=== PATIENT | female | born 1960 | race Caucasian/White ===

== ENCOUNTER 2017-04-28 08:10 | Outpatient (CLI) | payer MEDICARE, MEDICAID ==
--- NOTE | 2017-04-28 15:21 | NM ---
RADIONUCLIDE GASTRIC EMPTYING SCAN: Date: 04/28/17 HISTORY: Epigastric pain, left upper quadrant abdominal pain. RADIOPHARMACEUTICAL: 2 mCi technetium-99m sulfur colloid administered orally in scrambled eggs. FINDINGS: There is 53% emptying of the ingested gastric contents at 1 hour, 73% emptying at 2 hours, 87% empty ing at 3 hours, and 100% emptying at 4 hours. The calculated gastric emptying half-time measures 54 minutes. IMPRESSION: Normal exam. POS: MELANI
== END 2017-04-28 08:11 | disposition home or self-care (01) ==
LOC: NM 08:10
PROVIDERS: ATTEND Internal Medicine
DX: R10.13 Epigastric pain (principal); R10.12 Left upper quadrant pain
CPT/HCPCS: 78264; A9541

== ENCOUNTER 2017-05-02 12:48 | Outpatient (CLI) | payer MEDICARE, MEDICAID ==
[2017-05-02] MEDS ORDERED: BUPIVACAINE IM ONE (13:15)
[2017-05-02] MEDS ORDERED: [UNRECOGNIZED DRUG - OTHER] IM ONE (13:15)
[2017-05-02] MEDS ORDERED: DEXAMETHASONE IM ONE (13:15)
[2017-05-02] MEDS ORDERED: TRIAMCINOLONE ACETONIDE IM ONE (13:15)
--- NOTE | 2017-05-02 16:09 | RAD ---
RIGHT HIP FLUOROSCOPIC INJECTION: Date: 05-02-17 History: Right hip arthritis, right hip pain. Radiation dosimetry: 0.9 minutes fluoroscopy, AK 563 mGy*cm\S\2. A total of 4 mg Dexamethasone, 40 mg triamcinolone, as well as 1 ml of Marcaine 0.5% was injected in to the right hip joint. Technique: Informed consent was obtained for the patient. The right hip was prepped and draped in the usual davon rile manner. A 1% Lidocaine solution was used to anesthetize the overlying soft tissues. A 22 gauge spinal needle was placed under fluoroscopic guidance into the right hip joint. Position was confirme d using some intravenous contrast, approximately 3 cc. After position was confirmed, the 3 ml of davon roid mixture was injected into the right hip joint. IMPRESSION: Successful right hip joint steroid injection using fluoroscopic guidance. POS: MELANI
== END 2017-05-02 12:49 | disposition home or self-care (01) ==
LOC: RAD 12:48
PROVIDERS: ATTEND Nurse Practitioner Family
DX: M25.551 Pain in right hip (principal); M16.11 Unilateral primary osteoarthritis, right hip
CPT/HCPCS: 27093; J1100; J3301; J3490

== ENCOUNTER 2017-05-10 11:39 | Inpatient (IN) | payer MEDICARE, MEDICAID ==
[2017-05-10] MEDS ORDERED: Piperacillin/Tazobactam 3.375 GM in Sodium Chloride 0.9% 100 ML IVPB SCH (12:00)
[2017-05-10] MEDS ORDERED: Ondansetron HCl/PF 8 MG in Sodium Chloride 0.9% 50 ML IVPB PRN (12:11)
[2017-05-10] MEDS: Fentanyl 100 MCG/2 ML VIAL SLOW IVP PRN ×3 (12:56→22:41)
[2017-05-10] MEDS ORDERED: Vancomycin HCl 1 GM in Premix Bag 1 BAG IVPB SCH (13:00)
[2017-05-10] MEDS: Ondansetron HCl/PF 4 MG/2 ML Vial SLOW IVP PRN ×2 (13:02→22:55)
[2017-05-10 13:18] LABS: #Basophils 0.1 thou/uL (0.0-0.2); #Eosinphils 0.3 thou/uL (0.0-0.7); #Lymphocytes 2.4 thou/uL (1.20-3.40); #Monocytes 1.5 thou/uL (0.11-0.59); #Neutrophils 10.1 thou/uL (1.40-6.50); %Basophils 0.7 % (0.0-1.0); %Eosinophils 2.1 % (0.0-10.0); %Lymphocytes 16.3 % (21.0-51.0); %Monocytes 10.4 % (0.0-10.0); Hematocrit 40.2 % (36.0-47.0); Mean Platelet Volume 8.4 fL (7.4-10.4); White Blood Cell (WBC) Count 14.4 thou/uL (4.8-10.8)
[2017-05-10 13:30] VITALS: BMI 33.3
[2017-05-10 13:51] LABS: ALT (SGPT) 47 U/L (8-55); AST (SGOT) 35 U/L (5-34); Alkaline Phosphatase 102 U/L (40-150); Anion Gap 11 mmol/L (10-20); BUN (Urea Nitrogen) 22 mg/dL (9.8-20.1); Calc. Creatinine Clearance 79 mL/min (70-130); Calcium 9.4 mg/dL (7.8-10.44); Carbon Dioxide 22 mmol/L (22-29); Chloride 104 mmol/L (98-107); Estimated GFR-MDRD 47; Globulin 3.1 g/dL (2.4-3.5); Protein, Total 6.7 g/dL (6.0-8.3)
[2017-05-10] MEDS: HYDROcodone/Acetaminophen 10/325 mg Tablet PO PRN ×2 (14:52→21:01)
[2017-05-10] MEDS: Piperacillin/Tazobactam 3.375 GM, IV Admixture Fee-Chemo 1 UNITS in Sodium Chloride 0.9... IVPB SCH ×2 (14:55→21:03)
--- NOTE | 2017-05-10 15:47 | HP ---
DATE OF ADMISISON: 05/10/2017 CHIEF COMPLAINT ON ADMISSION: Cellulitis, abscess, fever. HISTORY OF PRESENT ILLNESS: The patient is a 56-year-old female who one week prior to adm ission began to have swelling and tenderness in her left lower abdomen. This gradually has worsened over time to the point where erythema and heat showed up that began to hurt when she walked over th e last couple of days, she began to have a fever over the last 2 days. She has been applying warm c ompresses and her daughter opened this wound and was able to get some clear serous drainage out; how ever, it did not diminished her pain. There has not been any purulent drainage, her fever has fritz nued to go over 101. The size of erythematous patches raised to 3 cans sizes on her abdominal wall. She also developed an abscess on the forehead at the widows peak and there is also opened and is d raining some minor amount of pus, but is exquisitely tender as well. She came to the office for the procedure of incision and drainage; however, the febrile nature and large area of cellulitis necess itated that she be hospitalized and received IV antibiotics. Surgical opening may be necessary once this has been stabilized. PAST MEDICAL HISTORY: Significant for hypertension, severe reflux and heartburn, osteoporosis, obst ructive sleep apnea, osteoarthritis, migraines, depression and now she has intestinal gastroparesis with recent diagnosis of gastritis and esophagitis, closed head injury with fracture, COPD, GERD. PAST SURGICAL HISTORY: Her prior procedures include EGD and colonoscopy done recently. She has als o had neck surgery per Dr. Gill. She has also undergone hysterectomy, a C3-C4 disk repair, kim endectomy, corneal surgery, cholecystectomy. FAMILY HISTORY: Mother is alive. Father unknown. Mother has diabetes, hypertension and back probl ems. SOCIAL HISTORY: The patient is . She is a former smoker. She no longer smokes or drinks. ALLERGIES: Just to LATEX. CURRENT MEDICATIONS: Include Forteo 20 mcg subcu daily, sulfasalazine 500 mg b.i.d., Levsin subling ual p.r.n. stomach cramps, Zoloft 100 mg at bedtime, Protonix 40 mg b.i.d. and Promethazine 25 mg p. r.n. nausea. REVIEW OF SYSTEMS: General: The patient has had fever, looks fatigued, general malaise and discomf ort. HEENT: Denies headaches or blurred vision at this time. No sores in the nares or pharynx. Neck: Denies pain with range of motion or swelling or mass. Chest: Denies cough, but there is tyra n with inspiration in her abdominal wall. Heart: Denies palpitations or chest pain. Abdomen: She is tender at the site of the abscess. No organomegaly is appreciated. Genitourinary: Denies any burning with urination, frequency, or urgency. Musculoskeletal: There i s general arthritic complaints, but no specific swelling or site of erythema. Skin: Skin with the aforementioned patches of erythema, heat, tenderness and pain on the left abdomen as well as the pea k of her forehead. Neurologic: Cranial nerves are intact. Gait is painful, but slow. Sensory exa m is intact. Mental status is clear. The gait and cerebellar function are normal. LABORATORY DATA: Lab work is pending at the time of admission. ASSESSMENT: 1. Acute abdominal wall cellulitis with abscess formation. 2. Forehead abscess. 3. Early sepsis. 4. Mild dehydration. PLAN: Antiemetics, IV antibiotics, pain management, serial reevaluation. We will consider surgical consultation to open these areas once we see her response to antibiotics. We will ask pharmacy to manage the vancomycin levels. We will serially reevaluate her.
[2017-05-10] MEDS ORDERED: Iopamidol 370 76% 100 ML VIAL ONE (16:09)
[2017-05-10 17:52] LABS: Bilirubin Negative (Negative); Blood, Urine Negative (Negative); Glucose, Urine (Dipstick) Negative (Negative); Ketone, Urine Negative (Negative); Nitrite Negative (Negative); Protein, Urine (Dipstick) Negative (Neg-Trace); Urobilinogen 0.2 mg/dL (0.2-1.0)
[2017-05-10 17:54] LABS: Bacteria/HPF None Seen HPF (None Seen); Hyaline Casts/LPF 0-3 HYALINE CAST LPF (0-3 Hyaline); RBC/HPF 0-3 HPF (0-3); Squamous Epithelial 0-3 HPF (0-3); WBC/HPF 0-3 HPF (0-3)
--- NOTE | 2017-05-10 20:16 | CT ---
CT ABDOMEN WITH AND WITHOUT IV CONTRAST 05/10/17 HISTORY: Spider bite anterior abdomen. Redness. Evaluate for abscess. Cellulitis. FINDINGS: There is inflammatory stranding seen within the left anterolateral aspect of the abdomen lateral to the level of the umbilicus with associated skin thickening. There is no underlying fluid collection seen to suggest an abscess. There is mild bibasilar atelectasis. The liver, spleen, pancreas, and bilateral adrenal glands as well as opacified bowel demonstrate a n ormal CT appearance. There is a fluid attenuation cystic lesion central aspect left kidney suggestive of a small parapelv ic cyst. There is also a cortically based 1.3 cm fluid attenuation lesion seen within the lateral as pect mid portion left kidney consistent with a cyst. Subcentimeter to small to characterize hypodens e lesion seen at the inferior pole right kidney. Mild vascular calcifications are seen in the abdominal aorta and proximal visualized iliac arteries. No free fluid, fluid collection, or lymphadenopathy is seen in the abdomen or pelvis. Incidental not e is made of a circumaortic left renal vein. IMPRESSION: 1. Subcutaneous edema and skin thickening in the left anterolateral abdomen at the level of the umbilicus which may be related to cellulitis. There is no fluid collection seen to suggest an absce ss. 2. Left renal cyst with too small to characterize hypodense lesion right kidney. 3. Cholecystectomy. POS: MELANI
[2017-05-10] MEDS ORDERED: FLU VACC QS2017-18 36 mo. & older 0.5 ML SYRINGE IM ONE (21:00)
[2017-05-11] MEDS: HYDROcodone/Acetaminophen 10/325 mg Tablet PO PRN (01:37)
[2017-05-11] MEDS: Vancomycin HCl 1 GM in Premix Bag 1 BAG IVPB SCH ×2 (01:37→11:24)
[2017-05-11] MEDS: Fentanyl 100 MCG/2 ML VIAL SLOW IVP PRN ×4 (03:59→16:04)
[2017-05-11] MEDS: Piperacillin/Tazobactam 3.375 GM, IV Admixture Fee-Chemo 1 UNITS in Sodium Chloride 0.9... IVPB SCH ×4 (04:00→21:26)
[2017-05-11] MEDS: Ondansetron HCl/PF 4 MG/2 ML Vial SLOW IVP PRN ×2 (08:07→16:00)
[2017-05-11] MEDS: Acetaminophen 325 MG TAB PO PRN ×2 (08:29→21:32)
[2017-05-11] MEDS: oxyCODONE/Acetaminophen 5 mg/325 mg Tablet PO PRN ×3 (09:28→18:54)
[2017-05-11] MEDS ORDERED: Clopidogrel Bisulfate 75 MG TAB ONE (11:10)
[2017-05-11] MEDS: Acyclovir 400 mg Tablet PO SCH ×2 (14:08→21:25)
[2017-05-12 00:53] LABS: Vancomycin, Trough 11.7 ug/mL
[2017-05-12] MEDS ORDERED: Vancomycin HCl 1.25 GM in Sodium Chloride 0.9% 250 ML 250 ML IVPB SCH (02:00)
[2017-05-12] MEDS: Vancomycin HCl 1 GM in Premix Bag 1 BAG IVPB SCH (02:04)
[2017-05-12] MEDS: Vancomycin HCl 1.25 GM in Sodium Chloride 0.9% 250 ML 250 ML IVPB SCH ×2 (02:07→14:39)
[2017-05-12] MEDS: oxyCODONE/Acetaminophen 5 mg/325 mg Tablet PO PRN (02:11)
[2017-05-12 04:14] LABS: #Eosinphils 0.3 thou/uL (0.0-0.7); #Lymphocytes 2.6 thou/uL (1.20-3.40); #Monocytes 1.1 thou/uL (0.11-0.59); #Neutrophils 8.7 thou/uL (1.40-6.50); %Basophils 0.3 % (0.0-1.0); %Eosinophils 2.2 % (0.0-10.0); %Lymphocytes 20.2 % (21.0-51.0); %Monocytes 8.9 % (0.0-10.0); Hematocrit 41.1 % (36.0-47.0); Mean Platelet Volume 7.4 fL (7.4-10.4); Red Blood Cell (RBC) Count 4.49 mill/uL (4.20-5.40); White Blood Cell (WBC) Count 12.7 thou/uL (4.8-10.8)
[2017-05-12] MEDS: Piperacillin/Tazobactam 3.375 GM, IV Admixture Fee-Chemo 1 UNITS in Sodium Chloride 0.9... IVPB SCH ×4 (04:19→22:29)
[2017-05-12 04:40] LABS: Anion Gap 10 mmol/L (10-20); BUN (Urea Nitrogen) 12 mg/dL (9.8-20.1); Calc. Creatinine Clearance 77 mL/min (70-130); Calcium 9.8 mg/dL (7.8-10.44); Carbon Dioxide 28 mmol/L (22-29); Chloride 105 mmol/L (98-107); Estimated GFR-MDRD 45
[2017-05-12] MEDS: Acetaminophen 325 MG TAB PO PRN ×2 (05:17→17:14)
[2017-05-12] MEDS ORDERED: Promethazine HCl 25 MG/ML VIAL IM PRN (08:38)
[2017-05-12] MEDS: Ondansetron HCl/PF 4 MG/2 ML Vial SLOW IVP PRN (10:35)
[2017-05-12] MEDS: Acyclovir 400 mg Tablet PO SCH ×3 (10:35→22:28)
[2017-05-12] MEDS: Enoxaparin Sodium 40 MG/0.4 ML SYRINGE SC SCH (22:28)
[2017-05-13] MEDS: Acetaminophen 325 MG TAB PO PRN (00:40)
[2017-05-13] MEDS: Piperacillin/Tazobactam 3.375 GM, IV Admixture Fee-Chemo 1 UNITS in Sodium Chloride 0.9... IVPB SCH ×4 (03:27→20:21)
[2017-05-13] MEDS: Vancomycin HCl 1.25 GM in Sodium Chloride 0.9% 250 ML 250 ML IVPB SCH ×2 (03:28→14:31)
[2017-05-13 04:33] LABS: #Basophils 0.1 thou/uL (0.0-0.2); #Eosinphils 0.2 thou/uL (0.0-0.7); #Lymphocytes 2.5 thou/uL (1.20-3.40); #Monocytes 0.9 thou/uL (0.11-0.59); #Neutrophils 6.7 thou/uL (1.40-6.50); %Basophils 0.6 % (0.0-1.0); %Eosinophils 1.9 % (0.0-10.0); %Lymphocytes 24.3 % (21.0-51.0); %Monocytes 9.1 % (0.0-10.0); Mean Platelet Volume 7.4 fL (7.4-10.4); Red Blood Cell (RBC) Count 4.04 mill/uL (4.20-5.40); White Blood Cell (WBC) Count 10.4 thou/uL (4.8-10.8)
[2017-05-13 05:05] LABS: ALT (SGPT) 36 U/L (8-55); AST (SGOT) 27 U/L (5-34); Alkaline Phosphatase 105 U/L (40-150); Anion Gap 10 mmol/L (10-20); BUN (Urea Nitrogen) 10 mg/dL (9.8-20.1); Bilirubin, Total 0.7 mg/dL (0.2-1.2); Calc. Creatinine Clearance 91 mL/min (70-130); Calcium 9.2 mg/dL (7.8-10.44); Carbon Dioxide 27 mmol/L (22-29); Chloride 106 mmol/L (98-107); Estimated GFR-MDRD 55; Protein, Total 6.2 g/dL (6.0-8.3)
--- NOTE | 2017-05-13 05:57 | CON ---
DATE OF CONSULT: 05/12/2017 HISTORY OF PRESENT ILLNESS: Ms. Napier is a 56-year-old female patient admitted due to severe abd ominal wall infection apparently from brown recluse spider bite. Abdominal CAT scan obtained at reveals infectious changes. Blood cultures have been negative today. The patient has been experiencing this for several days. She was admitted and placed on vancomycin and Zosyn. ALLERGIES: LATEX. MEDICATIONS: Forteo, sulfasalazine, Levsin sublingual p.r.n., Zoloft, Protonix, promethazine. PAST SURGICAL HISTORY: Cervical spine surgery by Dr. Gill, hysterectomy, appendectomy, cholecy stectomy, recent upper and lower endoscopy. PAST MEDICAL HISTORY: Hypertension, gastroesophageal reflux disease, sleep apnea, osteoarthritis, m igraines, depression, gastroparesis, history of closed head injury, cervical spine fracture, COPD. SOCIAL HISTORY: Patient is . Tobacco none. Former smoker. ALCOHOL: None. MEDICATIONS AT HOME: Tylenol with codeine at home, Protonix 40 mg a day, Zanaflex 40 b.i.d., vancom ycin, Zosyn ordered in the hospital. PHYSICAL EXAMINATION: VITAL SIGNS: 5 foot 7, 213 pounds, 33 BMI, 98.8, 68, 137/68. LUNGS: Clear to auscultation. CARDIAC: Regular rate and rhythm without murmur or gallop. ABDOMEN: Soft, nontender, no masses, abdominal wall, intense cellulitis in left lower quadrant with a punctate opening consistent with a brown recluse spider bite with central necrosis. ASSESSMENT: Necrotizing soft tissue infection due to a brown recluse spider bite. PLAN: Incision and drainage under anesthesia tomorrow. Risks and benefits explained. She will hav e an open wound to heal by secondary intention, wound care be consulted.
[2017-05-13] MEDS ORDERED: Lactated Ringer's 1,000 ML IV SCH (08:00)
[2017-05-13] MEDS ORDERED: oxyCODONE/Acetaminophen 5 mg/325 mg Tablet PO PRN (08:15)
--- NOTE | 2017-05-13 08:31 | PRG ---
DATE OF SERVICE: 05/13/2017 SUBJECTIVE: The patient had a good night. Her pain was not controlled with the Demerol and Phenerg an. However, she figured out that her headache was from the cause of her pillow being too thick. O nce she took the pillow out from under her head, her pain has been better. PHYSICAL EXAMINATION GENERAL: Upon evaluation, she is awake, alert, and oriented. Her daughter is at bedside. VITAL SIGNS: Her blood pressure is 130/70, pulse 70, respirations 18. She is afebrile. NECK: Supple with no increased JVP or carotid bruit. Carotid had good upstroke with no thyromegaly . COR: Regular rate and rhythm with normal first and second heart sounds normal. No murmur, S3, S4, or thrills. CHEST: Symmetrical. Clear to auscultation and percussion. ABDOMEN: Soft and tender. She has a large area from a spider bite that is red that is inflamed. I t is warm and it has pus coming out. She had normoactive bowel sounds. EXTREMITIES: No edema or cyanosis. She had palpable pedal pulses. SKIN: As above. NEUROLOGIC: She is awake, alert, oriented to person, place, and time. LABORATORY DATA: Her CBC is normal. Her CMP is normal. Her cultures are pending at this time. ASSESSMENT: 1. Cellulitis from a spider bite. 2. Headache, now improved. 3. Multiple medical problems. PLAN: 1. The patient will undergo an I\T\D of her wound today by Dr. Garsia. We will change her pain med icine back to Percocet and discontinue the Demerol and Phenergan. 2. We will continue antibiotics. 3. All questions answered to the patient's satisfaction.
[2017-05-13] MEDS ORDERED: Lidocaine 2% w/Epinephrine 1:200K 20 ML VIAL ONE (09:47)
[2017-05-13] MEDS ORDERED: Bupivacaine 0.25% HCL 30 ML VIAL ONE (09:47)
[2017-05-13] MEDS ORDERED: Fentanyl 250 MCG/5 ML VIAL ONE (10:04)
[2017-05-13] MEDS ORDERED: Lidocaine 4% Topical Sol 50 ML BOT ONE (10:13)
[2017-05-13] MEDS ORDERED: Ondansetron HCl/PF 4 MG/2 ML Vial ONE (11:35)
--- NOTE | 2017-05-13 12:10 | OP ---
DATE OF OPERATION: 05/13/2017 PREOPERATIVE DIAGNOSIS: Left lower quadrant abdominal wall abscess. POSTOPERATIVE DIAGNOSIS: Left lower quadrant abdominal wall abscess. PROCEDURE: Incision and drainage of abdominal wall abscess, 9 cm incision, 2 cm wide, 2 cm deep, co pious purulent material sent for culture and sensitivity. Wound VAC applied by Wound Care. ANESTHESIA: General. Local 0.5% Marcaine 30 mL, 2% Xylocaine with epinephrine, 30 mL total volume used. PROCEDURE IN DETAIL: The patient was taken to the operating room where under general anesthesia, ab mcknight was prepared with ChloraPrep, draped in routine fashion. The patient had an abscess that was drained. Transverse incision in the left upper quadrant exploring the wound breaking down loculatio ns and draining abscess of copious purulent material sent for culture and sensitivity. Wound was ir rigated, necrotic tissue debrided sharply excisional 10 blade scalpel used. Wound was irrigated, he mostasis gained with cautery. Wound Care team arrived and placed a wound VAC after local anesthetic infiltrated into skin and subcutaneous tissue about the wound for postoperative pain control. The patient tolerated the procedure well. From a surgical standpoint, the patient will probably be discharged home this weekend with the wound VAC is available. I will see her in the office in [address] Issa is covering, please c all if needed.
[2017-05-13] MEDS ORDERED: Ibuprofen 600 MG TAB PO PRN (14:26)
[2017-05-13] MEDS ORDERED: Acetaminophen 500 MG TAB PO PRN (14:26)
[2017-05-13] MEDS ORDERED: traMADol HCl 50 MG TAB PO PRN (14:26)
[2017-05-13] MEDS: Acyclovir 400 mg Tablet PO SCH ×3 (14:34→20:21)
--- NOTE | 2017-05-13 16:03 | PQF ---
CLINICAL DOCUMENTATION IMPROVEMENT CLARIFICATION FORM: ICD-10 Updated PLEASE DO AN ADDENDUM TO THE PROGRESS NOTE WITH ANY DOCUMENTATION UPDATES OR ADDITIONS AND CARRY THROUGH TO DC SUMMARY. THANK YOU. DATE: 05/13/17 ATTN: Dr. Pena Please exercise your independent, professional judgment in responding to the clarification form. Clinical indicators are provided on the bottom of this form for your review Please check appropriate box(s) to clarify if the following diagnosis has been ruled in our ruled out: Early Sepsis in (H&P.) [ x ] Ruled in diagnosis [ x ] Continue to treat [ ] Resolved [ ] Ruled out diagnosis [ ] Cannot rule out diagnosis [ x ] Other diagnosis brown recluse bite [ ] Unable to determine For continuity of documentation, please document condition throughout progress notes and discharge summary. Thank You. CLINICAL INDICATORS - SIGNS / SYMPTOMS / LABS H&P: FEVER OVER LAST 2 DAYS LAB: 05/10 WBC 14.4 RISKS: H&P: ACUTE ABDOMINAL WALL CELLULITIS W/ ABSCESS FORMATION. FOREHEAD ABSCESS GS CONSULT: NECROTIZING SOFT TISSUE INFECTION D/T BROWN RECLUSE SPIDER BITE TREATMENT: CPOE 05/10: ZOSYN 3.375 GM IV CPOE 05/12: VANCOMYCIN I (This form is maintained as a part of the permanent medical record) 2014 [employer]. All Rights Reserved Sarah Kaufman RN, BSN [email or web address] Office: [phone] [facility]
[2017-05-13] MEDS: traMADol HCl 50 MG TAB PO PRN ×2 (18:31→23:25)
[2017-05-13] MEDS: Enoxaparin Sodium 40 MG/0.4 ML SYRINGE SC SCH (23:24)
[2017-05-14 01:21] LABS: Vancomycin, Trough 16.7 ug/mL
[2017-05-14] MEDS: Piperacillin/Tazobactam 3.375 GM, IV Admixture Fee-Chemo 1 UNITS in Sodium Chloride 0.9... IVPB SCH ×4 (02:17→22:44)
[2017-05-14] MEDS: Vancomycin HCl 1.25 GM in Sodium Chloride 0.9% 250 ML 250 ML IVPB SCH ×2 (04:14→17:21)
[2017-05-14 06:03] LABS: #Basophils 0.1 thou/uL (0.0-0.2); #Lymphocytes 1.6 thou/uL (1.20-3.40); #Monocytes 0.6 thou/uL (0.11-0.59); #Neutrophils 8.9 thou/uL (1.40-6.50); %Basophils 0.6 % (0.0-1.0); %Eosinophils 0.2 % (0.0-10.0); %Lymphocytes 13.9 % (21.0-51.0); %Monocytes 5.4 % (0.0-10.0); Mean Platelet Volume 7.9 fL (7.4-10.4); Red Blood Cell (RBC) Count 3.68 mill/uL (4.20-5.40); White Blood Cell (WBC) Count 11.1 thou/uL (4.8-10.8)
[2017-05-14] MEDS: Acyclovir 400 mg Tablet PO SCH ×3 (09:26→20:34)
[2017-05-14] MEDS ORDERED: Ondansetron HCl/PF 4 MG/2 ML Vial ONE (10:39)
[2017-05-14] MEDS ORDERED: Succinylcholine Chloride 20 MG/ML 10 ml SYRINGE FS ONE (10:39)
[2017-05-14] MEDS ORDERED: PHENYLEPHRINE-NS 100 MCG/ML 10 ML SYRINGE ONE (10:39)
[2017-05-14] MEDS ORDERED: Ketorolac Tromethamine 30 MG/ML VIAL ONE (10:39)
[2017-05-14] MEDS ORDERED: Dexamethasone 20 MG/5 ML VIAL ONE (10:39)
[2017-05-14] MEDS ORDERED: Lidocaine 2% PF 10 ML AMP (For Epidural Use) ONE (10:39)
[2017-05-14] MEDS ORDERED: Propofol 200 MG/20 ML VIAL ONE ×2 (10:39)
[2017-05-14] MEDS: traMADol HCl 50 MG TAB PO PRN (12:55)
[2017-05-14] MEDS ORDERED: Lidocaine 4% Topical Sol 50 ML BOT TOP PRN (15:20)
[2017-05-14] MEDS: Clindamycin 150 MG CAP PO SCH ×2 (17:53→23:45)
[2017-05-14] MEDS: Enoxaparin Sodium 40 MG/0.4 ML SYRINGE SC SCH (20:37)
--- NOTE | 2017-05-14 21:45 | DIS ---
Consuelo Mendoza PRODUCTION SAMPLER-Kiko, dictating for José Miguel Pena M.D. DATE: 05/14/2017 FINAL DIAGNOSES: 1. Abdominal abscess secondary to insect bite. 2. Cellulitis. COMPLICATIONS: None. PROCEDURES: The patient underwent an I\T\D of the abdominal abscess on 05/13/[address] Garsia. CONSULTANTS: Dr. Garsia. HOSPITAL COURSE: This is a pleasant female who was seen by Dr. Pena in the clinic where she was fo und to have abdominal cellulitis secondary to insect bite. She was placed in the hospital where IV antibiotics were initiated. A culture came back that did show MRSA. She did also have a blood cult ure that was negative and urine culture that was negative. She unfortunately was not getting better . Her white blood cell was 14.4, H\T\H was normal. Her CMP was normal except for BUN slightly elev ated , creatinine 1.18. I did have to consult Dr. Garsia who took her to surgery and underwent the procedures enumerated above. She tolerated the procedure well and had no complication. The patient did have to have a wound VAC. Dr. Garsia did place a call with me and states that the p attabatha could go home this weekend where he would continue the wound VAC and for some reason if that was not able to happen, then she could just do wet-to-dry dressings. Her hospital course was unremar kable. Her culture did show MRSA. Her white blood cell count was normal on the day of dismissal. She was discharged home on 05/14/2017. DIET: Regular diet. ACTIVITY: As tolerated by patient. DISCHARGE MEDICATIONS: 1. Tylenol #3 one to two q.4-6 hours p.r.n., pain. 2. Clindamycin 300 mg q.6 hours. 3. Protonix 40 mg every day. 4. Zanaflex 4 mg b.i.d. 5. Zovirax 400 mg t.i.d. 6. Zoloft 100 mg every day. 7. Tylenol p.r.n. FOLLOWUP: She was advised to follow up with Consuelo in 1 week. She would have [facility]. The patient verbalized understanding. The time spent with this patient after reviewing the chart and seeing the patient was 30 minutes.
[2017-05-15] MEDS: Piperacillin/Tazobactam 3.375 GM, IV Admixture Fee-Chemo 1 UNITS in Sodium Chloride 0.9... IVPB SCH ×2 (04:27→07:34)
[2017-05-15] MEDS: traMADol HCl 50 MG TAB PO PRN (04:35)
[2017-05-15] MEDS: Clindamycin 150 MG CAP PO SCH ×2 (04:36→11:47)
[2017-05-15] MEDS: Acyclovir 400 mg Tablet PO SCH (08:43)
[2017-05-15 08:53] VITALS: BP 146/90; TEMP 97.9
--- NOTE | 2017-05-15 18:24 | ADD-DIS ---
ADDENDUM: Unfortunately, the patient's discharge had to be cancelled yesterday as she was in lot of pain from the wound, after wound care changed her dressing. Today, she is much better and feels confident ervin t she can go home with home health. The daughter was also taught on how to do dressing changes as donovan ford. The patient is stable. She will go home on clindamycin as already ordered and Tylenol No. 3. The time spent yesterday and today with this patient was over 30 minutes dictating the discharge sum lora and reviewing the chart and spending time with the patient. Consuelo Mendoza, DANIEL-C, dictating for José Miguel Pena M.D.
[2017-05-16] MEDS ORDERED: FLU VACC QS2017-18 36 mo. & older 0.5 ML SYRINGE IM ONE (09:00)
--- NOTE | 2017-05-16 15:53 | EKG ---
Test Reason : Blood Pressure : / mmHG Vent. Rate : 088 BPM Atrial Rate : 088 BPM P-R Int : 130 ms QRS Dur : 084 ms QT Int : 382 ms P-R-T Axes : 039 -05 037 degrees QTc Int : 462 ms Normal sinus rhythm Minimal voltage criteria for LVH, may be normal variant Borderline ECG Confirmed by FABY REID ([id number]) on 05/16/2017 3:52:39 PM Referred By: JON Confirmed By:FABY REID
== END 2017-05-15 12:37 | disposition home health service (06) | DRG 854 ==
LOC: T4-A 11:39
PROVIDERS: ADMIT Specialist; ATTEND Specialist
PROC: 0J9800Z Drainage of Abdomen Subcutaneous Tissue and Fascia with Drainage Device, Open Approach (ICD-10-PCS; principal; 2017-05-13)
PROC: 0JB80ZZ Excision of Abdomen Subcutaneous Tissue and Fascia, Open Approach (ICD-10-PCS; 2017-05-13)
DX: A41.9 Sepsis, unspecified organism (principal); L03.311 Cellulitis of abdominal wall; L02.211 Cutaneous abscess of abdominal wall; L02.01 Cutaneous abscess of face; I10 Essential (primary) hypertension; K21.9 Gastro-esophageal reflux disease without esophagitis; M81.0 Age-related osteoporosis without current pathological fracture; G47.33 Obstructive sleep apnea (adult) (pediatric); G43.909 Migraine, unspecified, not intractable, without status migrainosus; F32.9 Major depressive disorder, single episode, unspecified; J44.9 Chronic obstructive pulmonary disease, unspecified; Z87.891 Personal history of nicotine dependence; E86.0 Dehydration; B95.62 Methicillin resistant Staphylococcus aureus infection as the cause of diseases classified elsewhere; T63.331A Toxic effect of venom of brown recluse spider, accidental (unintentional), initial encounter; Z91.040 Latex allergy status
CPT/HCPCS: 36415; 74170; 80048; 80053; 80202; 81001; 85025; 87040; 87070; 87077; 87086; 87186; 87205; 90471; 90682; 93005; 93010; A4216; G0008; J0131; J1100; J1650; J1885; J2001; J2175; J2405; J2543; J2704; J3010; J3370; J7050; Q2036; S0020

== ENCOUNTER 2017-07-29 08:00 | Outpatient (CLI) | payer MEDICARE, MEDICAID | END 2017-07-29 08:01 | disposition home or self-care (01) | LOC: BICMRI 08:00 | PROVIDERS: ATTEND Orthopaedic Surgery | DX: M25.551 Pain in right hip (principal) ==

== ENCOUNTER 2017-09-05 09:01 | Outpatient (CLI) | payer MEDICARE, MEDICAID ==
[~2017-09-05 09:01] MED LIST: Iopamidol 370 76% 100 ML VIAL ONE
--- NOTE | 2017-09-05 14:10 | CT ---
CT OF ABDOMEN AND PELVIS PERFORMED WITH INTRAVENOUS CONTRAST ENHANCEMENT: HISTORY: Abdominal pain and right hip pain. History of hysterectomy, cholecystectomy, and appendectomy. FINDINGS: The lung bases are clear. The liver and spleen are normal in size and appearance. Pancreas shows no mass or ductal dilatation. The gallbladder has been removed. Right and left adrenal glands are normal in size. Small hypodensities involving the kidneys are most likely cysts. There is no significant periaortic or mesenteric lymphadenopathy. A retroaortic left renal vein is incidentally noted. CT OF PELVIS PERFORMED WITH CONTRAST ENHANCEMENT: Minimal sigmoid diverticulosis is noted. There is no evidence of any abdominal wall hernia other ervin n a fat-containing paraumbilical hernia. Review of osseous structures shows some arthritic changes o f the spine. IMPRESSION: 1. Minimal diverticulosis, mainly of the sigmoid colon. 2. Postop cholecystectomy change. POS: [facility]
== END 2017-09-05 09:02 | disposition home or self-care (01) ==
LOC: SCSCT 09:01
PROVIDERS: ATTEND Specialist
DX: R10.9 Unspecified abdominal pain (principal); Z90.49 Acquired absence of other specified parts of digestive tract
CPT/HCPCS: 74177

== ENCOUNTER 2018-06-09 09:15 | Outpatient (CLI) | payer MEDICARE, MEDICAID ==
[2018-06-09 09:45] LABS: #Basophils 0.1 thou/uL (0.0-0.2); #Eosinphils 0.2 thou/uL (0.0-0.7); #Lymphocytes 2.4 thou/uL (1.20-3.40); #Monocytes 0.6 thou/uL (0.11-0.59); #Neutrophils 4.1 thou/uL (1.40-6.50); %Basophils 1.1 % (0.0-1.0); %Eosinophils 2.4 % (0.0-10.0); %Lymphocytes 32.6 % (21.0-51.0); %Monocytes 8.3 % (0.0-10.0); %Neutrophils 55.6 % (42.0-75.0); Mean Corpuscular HGB CONC 33.3 g/dL (32.0-36.0); Mean Corpuscular Hemoglobin 29.4 pg (27.0-31.0); Mean Corpuscular Volume 88.4 fL (78.0-98.0); Mean Platelet Volume 8.2 fL (7.4-10.4); Platelet Count 235 thou/uL (130-400); RBC Distribution Width 13.7 % (11.5-14.5); Red Blood Cell (RBC) Count 4.77 mill/uL (4.20-5.40); White Blood Cell (WBC) Count 7.3 thou/uL (4.8-10.8)
[2018-06-09 10:05] LABS: Anion Gap 11 mmol/L (10-20); BUN (Urea Nitrogen) 19 mg/dL (9.8-20.1); Calc. Creatinine Clearance 0 mL/min (70-130); Calcium 9.9 mg/dL (7.8-10.44); Carbon Dioxide 24 mmol/L (22-29); Chloride 109 mmol/L (98-107); Estimated GFR-MDRD 65; Glucose 104 mg/dL (70-105); Potassium 4.6 mmol/L (3.5-5.1); Sodium 139 mmol/L (136-145)
--- NOTE | 2018-06-14 08:14 | EKG ---
Test Reason : Blood Pressure : / mmHG Vent. Rate : 060 BPM Atrial Rate : 060 BPM P-R Int : 132 ms QRS Dur : 082 ms QT Int : 422 ms P-R-T Axes : 070 039 056 degrees QTc Int : 422 ms Normal sinus rhythm Normal ECG When compared with ECG of 12-MAY-2017 20:53, No significant change was found Confirmed by DR. Iveth DAVIDSON ([id number]) on 06/14/2018 8:13:56 AM Referred By: SHRUTHI Confirmed By:DR. Iveth DAVIDSON
== END 2018-06-09 09:16 | disposition home or self-care (01) ==
LOC: LABBT 09:15
PROVIDERS: ATTEND Orthopaedic Surgery
DX: Z01.818 Encounter for other preprocedural examination (principal); G56.01 Carpal tunnel syndrome, right upper limb
CPT/HCPCS: 80048; 85025; 93005; 93010

== ENCOUNTER 2018-06-16 05:51 | Day surgery (SDC) | payer MEDICARE, MEDICAID ==
[2018-06-09 09:46] VITALS: BMI 32.8
[2018-06-16] MEDS ORDERED: CEFAZOLIN 2 GM/50 ML BAG ONE (06:13)
[2018-06-16] MEDS ORDERED: Lidocaine 1% w/Epinephrine 1:100K 30 ML VIAL ONE (06:42)
[2018-06-16] MEDS ORDERED: Fentanyl 100 MCG/2 ML VIAL ONE ×2 (07:15→08:38)
[2018-06-16] MEDS ORDERED: ePHEDrine/0.9% NaCl/PF SYRINGE 50 mg/10 ml ONE (12:00)
[2018-06-16] MEDS ORDERED: Dexamethasone 20 MG/5 ML VIAL ONE (12:00)
[2018-06-16] MEDS ORDERED: PROPOFOL 200 MG/20 ML VIAL ONE (12:00)
[2018-06-16] MEDS ORDERED: Ondansetron PF 4 MG/2 ML Vial ONE (12:00)
[2018-06-16] MEDS ORDERED: Lidocaine 1% PF 5 ML VIAL ONE (12:00)
--- NOTE | 2018-06-16 12:08 | OP ---
PREOPERATIVE DIAGNOSIS: Cubital tunnel syndrome, right. POSTOPERATIVE DIAGNOSIS: Cubital tunnel syndrome, right. PROCEDURE: Cubital tunnel release. SURGEON: Catarino Flores M.D. ANESTHESIA: General. BLOOD LOSS: Minimal. SPECIMENS: None. DRAINS: None. COMPLICATIONS: None. PROCEDURE IN DETAIL: Patient was taken to the operating room where general anesthesia was induced. Right arm was prepped and draped in the usual sterile fashion. After exsanguination, tourniquet was inflated to 250 mmHg. I made a curved incision over the medial epicondyle. Dissection was carried d own to . I dissected the nerve from the condyle and performed hemostasis with the bipolar caute ry. Once the nerve was completely released proximally and distally, the tourniquet was released. Ir rigation was performed. Hemostasis was obtained. Subcutaneous tissue was closed with 2-0 Vicryl, th e skin was closed with wili. Sterile dressing was applied.
== END 2018-06-16 09:38 | disposition home or self-care (01) ==
LOC: SDC 05:51
PROVIDERS: ATTEND Orthopaedic Surgery
PROC: 01N40ZZ Release Ulnar Nerve, Open Approach (ICD-10-PCS; principal; 2018-06-16)
DX: G56.21 Lesion of ulnar nerve, right upper limb (principal); M19.90 Unspecified osteoarthritis, unspecified site; M81.0 Age-related osteoporosis without current pathological fracture; G43.909 Migraine, unspecified, not intractable, without status migrainosus; F32.9 Major depressive disorder, single episode, unspecified; I10 Essential (primary) hypertension; K21.9 Gastro-esophageal reflux disease without esophagitis; Z87.891 Personal history of nicotine dependence; Z79.899 Other long term (current) drug therapy; Z79.83 Long term (current) use of bisphosphonates; Z88.5 Allergy status to narcotic agent; Z91.040 Latex allergy status
CPT/HCPCS: 96374; J1100; J2001; J2405; J2704; J3010

== ENCOUNTER 2018-12-13 09:40 | Outpatient (CLI) | payer MEDICARE, MEDICAID ==
--- NOTE | 2018-12-13 11:25 | RAD ---
CERVICAL SPINE 3 VIEWS: HISTORY: Neck pain, prior surgery with numbness and tingling to left arm. COMPARISON: 10/27/2018 MRI. FINDINGS: Anterior cervical fusion changes at C5, C6, and C7. Disk-osteophytosis at C4-C5 as well as facet art hrosis. Mild stable anterolisthesis of C7 on T1 without abnormal translation between flexion and ext ension. No significant prevertebral soft tissue swelling. IMPRESSION: Postoperative anterior cervical fusion changes at C5, C6, and C7. Stable anterolisthesis of C7 on T1 without abnormal translation. Cervical spondylosis. POS: OFF
== END 2018-12-13 09:41 | disposition home or self-care (01) ==
LOC: TBSIIMAG 09:40
PROVIDERS: ATTEND Neurological Surgery
DX: M54.2 Cervicalgia (principal); M47.812 Spondylosis without myelopathy or radiculopathy, cervical region; M43.13 Spondylolisthesis, cervicothoracic region; Z98.1 Arthrodesis status
CPT/HCPCS: 72040

== ENCOUNTER 2019-01-16 11:10 | Outpatient (CLI) | payer MEDICARE, MEDICAID ==
[2019-01-16 13:42] LABS: #Basophils 0.1 thou/uL (0.0-0.2); #Eosinphils 0.1 thou/uL (0.0-0.7); #Lymphocytes 3.9 thou/uL (1.20-3.40); #Monocytes 0.6 thou/uL (0.11-0.59); #Neutrophils 3.8 thou/uL (1.40-6.50); %Basophils 0.8 % (0.0-1.0); %Eosinophils 1.6 % (0.0-10.0); %Lymphocytes 46.2 % (21.0-51.0); %Monocytes 6.5 % (0.0-10.0); %Neutrophils 44.8 % (42.0-75.0); Hemoglobin 13.6 g/dL (12.0-16.0); Mean Corpuscular HGB CONC 32.5 g/dL (32.0-36.0); Mean Corpuscular Hemoglobin 29.7 pg (27.0-31.0); Mean Corpuscular Volume 91.5 fL (78.0-98.0); Mean Platelet Volume 8.3 fL (7.4-10.4); Platelet Count 247 thou/uL (130-400); Red Blood Cell (RBC) Count 4.58 mill/uL (4.20-5.40); White Blood Cell (WBC) Count 8.5 thou/uL (4.8-10.8)
[2019-01-16 14:32] LABS: Bilirubin Negative (Negative); Blood, Urine Negative (Negative); Clarity Clear (Clear); Glucose, Urine (Dipstick) Negative (Negative); Leukocyte Trace (Negative); Nitrite Positive (Negative); Protein, Urine (Dipstick) Negative (Neg-Trace); Specific Gravity, Urine 1.015 (1.005-1.030); Urobilinogen 0.2 mg/dL (0.2-1.0)
[2019-01-16 15:02] LABS: RBC/HPF None Seen HPF (0-3); Squamous Epithelial 0-3 HPF (0-3); WBC/HPF 0-3 HPF (0-3)
[2019-01-16 15:03] LABS: Bacteria/HPF 4+ HPF (None Seen); Hyaline Casts/LPF NONE SEEN LPF (0-3 Hyaline)
== END 2019-01-16 11:11 | disposition home or self-care (01) ==
LOC: LABBT 11:10
PROVIDERS: ATTEND Orthopaedic Surgery Hand Surgery
DX: Z01.818 Encounter for other preprocedural examination (principal); G56.02 Carpal tunnel syndrome, left upper limb
CPT/HCPCS: 81001; 85025; 93005; 93010

== ENCOUNTER 2019-01-19 10:06 | Day surgery (SDC) | payer MEDICARE, MEDICAID ==
[2019-01-16 11:45] VITALS: BMI 31.3
[2019-01-19] MEDS ORDERED: ePHEDrine 50 MG/ML VIAL ONE (10:49)
[2019-01-19] MEDS ORDERED: Glycopyrrolate 0.2 MG/ML 5 ML SYRINGE ONE (10:49)
[2019-01-19] MEDS ORDERED: PROPOFOL 200 MG/20 ML VIAL ONE (10:49)
[2019-01-19] MEDS ORDERED: Ondansetron PF 4 MG/2 ML Vial ONE (10:49)
[2019-01-19] MEDS ORDERED: PHENYLEPHRINE-NS 100 MCG/ML 10 ML SYRINGE ONE (10:49)
[2019-01-19] MEDS ORDERED: Dexamethasone 20 MG/5 ML VIAL ONE (10:49)
[2019-01-19] MEDS ORDERED: Bupivacaine PF 0.5% 30 ML VIAL ONE ×2 (14:42→17:10)
[2019-01-19] MEDS ORDERED: Betamet Acet/Betamet Na Ph 30 MG/5 ML VIAL ONE (14:42)
[2019-01-19] MEDS ORDERED: Fentanyl 100 MCG/2 ML VIAL ONE ×4 (14:57→18:01)
[2019-01-19] MEDS ORDERED: Ketorolac Tromethamine 30 MG/ML VIAL ONE (18:02)
[2019-01-19] MEDS ORDERED: Acetaminophen/Codeine 30-300mg Tablet ONE (19:01)
--- NOTE | 2019-01-22 11:49 | OP ---
DATE OF PROCEDURE: 01/19/2019 PREOPERATIVE DIAGNOSES: 1. 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 2. 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 3. Left olecranon bursitis, severe. POSTOPERATIVE DIAGNOSES: 1. 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 2. 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 3. Left olecranon bursitis, severe. PROCEDURES PERFORMED: 1. Left olecranon bursectomy. 2. Left ulnar nerve submuscular transposition. 3. Left carpal tunnel release. 4. Olecranon bursa very thick at the left elbow. TOURNIQUET TIME: 9 minutes total. ESTIMATED BLOOD LOSS: 10 mL total. FINDINGS: Included very tight cubital and carpal canals and very thick olecranon bursa. DESCRIPTION OF PROCEDURE: After successful general endotracheal anesthesia, the limb was prepped and draped. The patient had the time-out done appropriately. The patient also had the incisions outlined for carpal tunnel in line with Johnston's cardinal line through A1 with 5 mm short over the volar wrist flexion crease from distal to proximal and from medial to lateral. It was in line with the ring finger. We then had the same midline incision with slightly medially curved at the olecranon process outlined for olecranon bursitis made before the cubital tunnel procedure. We approached the carpal tunnel first and after exsanguinating the limb, inflated, and placed the tourniquet at 250 mmHg pressure. We then made the incision, carried through skin and subcutaneous tissue as well proximal 5 mm proximal to the volar wrist flexion crease. The patient then had the transverse carpal ligament visualized, released under direct visualization from the most midportion distally and from the midportion proximally. The tourniquet remained in place. We now approached the cubital tunnel region. It was here, that we made incision, carried through skin and subcutaneous tissue, created a flap that had the medial antebrachial cutaneous nerve inside it. We also had visualization of the ulnar nerve approximately 1.5 cm proximal to the ulnar styloid and then began to free it. First, we freed the [place] cubital tunnel itself. Then, we performed a mini neuroplasty, freeing the nerve throughout its course after release of the 2 heads of the flexor carpi radialis and flexor carpi ulnaris and then performed a task as required. Once we had done this, the nerve was freed, it could be transposed, so we made a L-shaped elevation and separation via incision of the origin of the flexor pronator group muscles. It was Z-lengthened and then closed with interrupted 2-0 Ethibond. Then, we placed Celestone in area. This was completed. We closed the incision. We then turned our attention to the carpal tunnel region. Then, we closed the carpal tunnel incision and turned our attention to the cubital tunnel region. Here, the midline incision was made, carried through skin and subcutaneous tissue, identified a very tight band at 5 cm proximal to the medial epicondyle and then throughout the entire course of the medial condyle and began to perform a series of maneuvers in order to affect this process. Once this was done, we were able to have a successful submuscular transposition. We then visualized the olecranon and the bursa was very thick, so left olecranon bursectomy was performed sparing the ulnar nerve under direct visualization. We then visualized the median nerve, continued exsanguination of the limb, and made the incision between Johnston's cardinal line and the volar wrist flexion crease, and after this, there was no problem seen and the transverse carpal ligament was completely released under direct visualization from the midportion distally and from the midportion proximally. Celestone placed 3 mL on both ulnar nerve at the elbow and the median nerve at the wrist. There was no abnormality and the olecranon bursa was completed without complication. I then closed all the incision with a running 3-0 undyed Monocryl epidermis that was dermal closure and epidermis was accomplished as needed with 4-0 nylon. The patient left the operating room in a posterior splint alone with no evidence of anesthetic or operative complication. Job ID: [id number]
== END 2019-01-19 19:12 | disposition home or self-care (01) ==
LOC: SDC 10:06
PROVIDERS: ATTEND Orthopaedic Surgery Hand Surgery
PROC: 01N50ZZ Release Median Nerve, Open Approach (ICD-10-PCS; principal; 2019-01-19)
PROC: 01N40ZZ Release Ulnar Nerve, Open Approach (ICD-10-PCS; 2019-01-19)
PROC: 0MB40ZZ Excision of Left Elbow Bursa and Ligament, Open Approach (ICD-10-PCS; 2019-01-19)
DX: G56.22 Lesion of ulnar nerve, left upper limb (principal); G56.02 Carpal tunnel syndrome, left upper limb; M70.22 Olecranon bursitis, left elbow; I10 Essential (primary) hypertension; K21.9 Gastro-esophageal reflux disease without esophagitis; M19.90 Unspecified osteoarthritis, unspecified site; M81.0 Age-related osteoporosis without current pathological fracture; F32.9 Major depressive disorder, single episode, unspecified; Z79.899 Other long term (current) drug therapy; Z87.891 Personal history of nicotine dependence; Z88.5 Allergy status to narcotic agent; Z91.040 Latex allergy status
CPT/HCPCS: 88304; J0690; J0702; J1100; J1885; J2405; J2704; J3010; J3490; S0020

== ENCOUNTER 2019-07-16 10:30 | Outpatient (CLI) | payer MEDICARE, MEDICAID ==
--- NOTE | 2019-07-16 13:09 | BD ---
DEXA BONE DENSITY STUDY: INDICATIONS: Bone mineral screening. FINDINGS: LUMBAR SPINE BMD (g/cm2) T-SCORE L1 0.6 -2.8 L2 0.8 -1.8 L3 0.8 -2.5 L4 0.7 -2.7 TOTAL 0.77 -2.5 NECK 0.6 -1.8 TOTAL 0.8 -0.8 IMPRESSION: Osteoporosis. The fracture risk is not calculated due to low T-score value. Transcribed Date/Time: 07/16/2019 1:20 PM
--- NOTE | 2019-07-16 13:13 | MMO ---
Bilateral MAMMO Bilat Diag DDI+MARTA. CLINICAL HISTORY: Patient is 59 years old and is seen for screening. The patient has the following family history of breast cancer: maternal grandmother, malignant (generic). The patient has no personal history of cancer. VIEWS: The views performed were: bilateral craniocaudal with tomosynthesis and bilateral mediolateral oblique with tomosynthesis. FILMS COMPARED: The present examination has been compared to prior imaging studies performed at [facility] on 12/05/2015, 01/07/2017, 02/16/2018 and 07/16/2019. This study has been interpreted with the assistance of computer-aided detection. MAMMOGRAM FINDINGS: The breasts are heterogeneously dense, which could obscure a lesion on mammography. There are multiple dilated ducts within the left retroareolar region. No associated mass in seen in this region on mammographic or sonographic assessment. Given history of bloody nipple discharge, breast MRI advised. On sonographic assessment, a 7 x 4mm hypoechoic mass was noted at the 2 o'clock position of the left breast. Ultrasound guided core biopsy is recommended. In the right breast, there are no suspicious masses, calcifications or areas of architectural distortion. IMPRESSION: FINDING IN THE LEFT BREAST IS SUSPICIOUS. BIOPSY IS RECOMMENDED. Prior to biopsy, breast MRI recommended to fully assess bloody nipple discharge. THE RESULTS OF THIS EXAM WERE SENT TO THE PATIENT. ACR BI-RADS Category 4 - Suspicious abnormality - biopsy should be considered MAMMOGRAPHY NOTE: 1. A negative mammogram report should not delay a biopsy if a dominant of clinically suspicious mass is present. 2. Approximately 10% to 15% of breast cancers are not detected by mammography. 3. Adenosis and dense breasts may obscure an underlying neoplasm. Reported by: LING HEMPHILL MD Electonically Signed: [id number]
--- NOTE | 2019-07-16 13:39 | ULT ---
FOCUSED ULTRASOUND OF THE LEFT BREAST: 07/16/2019 HISTORY: Bloody nipple discharge on the left FINDINGS: Focused ultrasound of the left retroareolar region obtained. Images demonstrate extensive prominent dilated ducts within the left retroareolar region. No mass les ion is noted within the dilated ducts. Of note, incidental note is made of an irregular heterogeneously hypoechoic solid nodule within the l eft breast at the 2 o'clock position, measuring 7 x 4 mm. IMPRESSION: BI-RADS 4 - suspicious abnormality. Recommend ultrasound guided core biopsy of the 7 x 4 mm mass at the 2 o'clock position of the left br east. With respect to the patient's history of bloody nipple discharge, multiple dilated ducts are noted in the left retroareolar region but no internal mass is seen. For a full evaluation, a breast MRI is ad vised prior to the ultrasound guided core biopsy of the left breast mass. CODE T POS: OFF
== END 2019-07-16 10:31 | disposition home or self-care (01) ==
LOC: BICMAMMO 10:30
PROVIDERS: ATTEND Specialist
DX: M81.0 Age-related osteoporosis without current pathological fracture (principal); N64.3 Galactorrhea not associated with childbirth; N63.21 Unspecified lump in the left breast, upper outer quadrant; Z80.3 Family history of malignant neoplasm of breast
CPT/HCPCS: 76642; 77066; 77080; G0279; 77063; 77067

== ENCOUNTER 2019-08-06 09:35 | Outpatient (CLI) | payer MEDICARE, MEDICAID ==
--- NOTE | 2019-08-06 11:13 | RAD ---
MRI CLEARANCE: RADIOGRAPH SKULL 2 VIEWS: Date: 08/06/2019 HISTORY: 59-year-old female for MRI clearance. Patient reports history of skull surgery. FINDINGS: There is a surgical osseous small defect in the right upper parietal calvarium near the coronal sutur e. No metallic foreign body is identified. IMPRESSION: The patient is cleared for MRI. POS: OFF
[2019-08-06] MEDS ORDERED: Magnevist 469MG/ML 20 ML VIAL ONE (15:12)
--- NOTE | 2019-08-06 15:14 | MRI ---
BILATERAL BREASTS WITHOUT AND WITH CONTRAST: COMPARISON: Breast ultrasound and mammogram 07/16/2019. HISTORY: Bloody left nipple discharge. Breast mass seen on ultrasound at the 2 o'clock position of the left b reast. TECHNIQUE: Multiplanar, multisequence MR images were obtained of the bilateral breasts without and with IV contr ast. Three-D MIP reformats and contrast-enhancement were generated on a [employer] work station. FINDINGS: Heterogeneously dense breast parenchyma is seen. Minimal background parenchymal enhancement is seen. There is high signal intensity T1 and T2 signal within the ducts of the left lateral aspect of the left breast. This corresponds to ultrasound graphic abnormality. There is a well-circumscribed mass in the upper outer aspect of the left breast measuring 7 mm in greatest dimension. This demonstrate s a type II plateau enhancing curve and likely corresponds to the ultrasound abnormality. No other a bnormal areas of enhancement or suspicious masses are seen in either breast. No axillary adenopathy is seen. No internal mammary lymph nodes are identified. Visualized anterior liver and osseous structures are unremarkable. IMPRESSION: 1. BIRADS category 4 - suspicious abnormality. The mass in the 2 o'clock position of the left breas t should be biopsied with ultrasound guidance. 2. There is proteinaceous debris/material within the ducts in the outer aspect of the left breast wi thout obvious intraductal mass identified. POS: C
== END 2019-08-06 09:36 | disposition home or self-care (01) ==
LOC: BICMRI 09:35
PROVIDERS: ATTEND Specialist
DX: N63.21 Unspecified lump in the left breast, upper outer quadrant (principal); N64.52 Nipple discharge
CPT/HCPCS: 70250; 82565; C8908; A9579

== ENCOUNTER → 2019-08-24 | Day surgery (SDC) | payer MEDICARE, MEDICAID ==
--- NOTE | 2019-08-24 13:34 | MMO ---
Left Breast MAMMO Unilat Diag DDI LT. CLINICAL HISTORY: Patient is 59 years old and is seen for breast biopsy. The patient has the following family history of breast cancer: maternal grandmother, malignant (generic). The patient has no personal history of cancer. The patient has a history of left Ultrasound Guided Core Biopsy in July,. VIEWS: The views performed were: left craniocaudal and left mediolateral oblique. FILMS COMPARED: The present examination has been compared to prior imaging studies performed at [facility] on 02/16/2018, 07/16/2019 and 08/06/2019. This study has been interpreted with the assistance of computer-aided detection. MAMMOGRAM FINDINGS: The breast is heterogeneously dense, which could obscure a lesion on mammography. There is a new biopsy clip seen in the left breast. IMPRESSION: NEW BIOPSY CLIP IN THE LEFT BREAST IS CONFIRMED UTILIZING POST PROCEDURE MAMMOGRAM. THE RESULTS OF THIS EXAM WERE SENT TO THE PATIENT. MAMMOGRAPHY NOTE: 1. A negative mammogram report should not delay a biopsy if a dominant of clinically suspicious mass is present. 2. Approximately 10% to 15% of breast cancers are not detected by mammography. 3. Adenosis and dense breasts may obscure an underlying neoplasm. Reported by: CIERRA LAUREANO MD Electonically Signed: [id number]
--- NOTE | 2019-08-24 15:05 | ULT ---
ULTRASOUND GUIDED LEFT BREAST BIOPSY: Date: 08/24/2019 PROVIDED CLINICAL HISTORY: Left breast mass. FINDINGS: Correlation is made with the examination performed 07/16/2019. Informed consent was obtained from the patient. The patient was placed on the sonography table and th e 2 o'clock left breast lesion was localized sonographically. The skin overlying this area was preppe d and draped in the usual sterile manner. Soft tissues were infiltrated with 1% buffered lidocaine. U nder continuous sonographic guidance, four core samples were obtained of the lesion. Under continuous sonographic guidance, a biopsy site marker was deployed adjacent to the mass. The needles were withdrawn and hemostasis achieved. Post biopsy mammograms confirmed clip deployment. IMPRESSION: Technically successful ultrasound guided left breast biopsy. Please correlate with histology results to follow. POS: OFF
== END ==
LOC: BICULT 12:28
PROVIDERS: ATTEND Specialist
PROC: 0H9U3ZX Drainage of Left Breast, Percutaneous Approach, Diagnostic (ICD-10-PCS; principal; 2019-08-24)
DX: N60.82 Other benign mammary dysplasias of left breast (principal); Z88.5 Allergy status to narcotic agent; Z91.040 Latex allergy status
CPT/HCPCS: 19083; 88305; 88341; 88342

== ENCOUNTER 2019-09-13 08:02 | Outpatient (CLI) | payer MEDICARE, MEDICAID ==
[2019-09-13 11:00] LABS: #Basophils 0.1 thou/uL (0.0-0.2); #Eosinphils 0.2 thou/uL (0.0-0.7); #Lymphocytes 3.7 thou/uL (1.20-3.40); #Monocytes 0.8 thou/uL (0.11-0.59); #Neutrophils 4.8 thou/uL (1.40-6.50); %Eosinophils 2.4 % (0.0-10.0); %Lymphocytes 38.6 % (21.0-51.0); %Monocytes 8.1 % (0.0-10.0); Hemoglobin 15.2 g/dL (12.0-16.0); Mean Corpuscular HGB CONC 33.6 g/dL (32.0-36.0); Mean Corpuscular Hemoglobin 30.8 pg (27.0-31.0); Mean Corpuscular Volume 91.7 fL (78.0-98.0); Mean Platelet Volume 8.4 fL (7.4-10.4); Platelet Count 229 thou/uL (130-400); RBC Distribution Width 12.7 % (11.5-14.5); Red Blood Cell (RBC) Count 4.93 mill/uL (4.20-5.40); White Blood Cell (WBC) Count 9.6 thou/uL (4.8-10.8)
[2019-09-13 11:22] LABS: Anion Gap 11 mmol/L (10-20); BUN (Urea Nitrogen) 13 mg/dL (9.8-20.1); Calc. Creatinine Clearance 0 mL/min (70-130); Calcium 9.8 mg/dL (7.8-10.44); Carbon Dioxide 24 mmol/L (23-31); Chloride 106 mmol/L (98-107); Estimated GFR-MDRD 61; Glucose 98 mg/dL (80-115); Potassium 4.4 mmol/L (3.5-5.1); Sodium 137 mmol/L (136-145)
--- NOTE | 2019-09-14 12:17 | MMO ---
NEEDLE LOCALIZATION OF THE LEFT BREAST: DATE: 09/14/2019 HISTORY: Patient has a history of positive biopsy-proven left breast cancer. FINDINGS: Successful left breast needle localization. A 5 cm [place] needle and wire were advanced into the left breast. The [place] needle and wire are adjacent to the biopsy clip. TECHNIQUE: Consent obtained to perform a left breast needle localization. Left breast was evaluated in the CC pr ojection. Clip was identified. Skin was prepped and draped in the sterile fashion. 1% lidocaine, buff ered with sodium bicarbonate, was used for local anesthesia. Under fluoroscopic/mammographic guidance , a 5 cm [place] needle was advanced into the left breast. Needle position was confirmed in the mediola teral projection. The wire was deployed. Post deployment images were obtained. Patient tolerated the procedure well. No immediate or postprocedure complication. SPECIMEN RADIOGRAPH: The [place] wire and clip, as well as calcifications, were present in the sample. Results were conveyed to Dr. Garsia on 09/14/2019 at the time of presentation of the sample. IMPRESSION: Successful needle localization. Biopsy clip present in sample. Results conveyed to Dr. Garsia. CODE CR. POS: OFF
== END 2019-09-13 08:03 | disposition home or self-care (01) ==
LOC: LABBT 08:02
PROVIDERS: ATTEND Specialist
DX: Z01.812 Encounter for preprocedural laboratory examination (principal); N63.20 Unspecified lump in the left breast, unspecified quadrant
CPT/HCPCS: 80048; 85025

== ENCOUNTER 2019-09-14 06:57 | Day surgery (SDC) | payer MEDICARE, MEDICAID ==
--- NOTE | 2019-09-12 12:02 | HP ---
HISTORY OF PRESENT ILLNESS: Lizet Napier, a 59-year-old female patient, who is following up after an ultrasound-guided left breast biopsy on 08/24/2019. Her left mammogram reveals new clip in the left breast, confirmed; pathology revealing fragments of sclerotic lesion with associated calcification, irregular ducts with apocrine metaplasia. Recommendation mammographic needle localized biopsy of left breast, 7 x 4 mm mass/density, seen on mammogram on 07/16/2019 status post benign biopsy, but excision to assure benign nature has been performed. MEDICATIONS: 1. Protonix. 2. Zoloft. 3. Gabapentin. PAST MEDICAL HISTORY: Hypertension, GERD, osteoporosis, osteoarthritis, migraines, depression, [place]ra. PAST SURGICAL HISTORY: Hysterectomy, appendectomy, corneal surgery, cholecystectomy, right carpal tunnel release, incision and drainage of abdominal wall abscess 2016. SOCIAL HISTORY: Tobacco, none currently. Alcohol, none. REVIEW OF SYSTEMS: Noncontributory. PHYSICAL EXAMINATION: VITAL SIGNS: pounds, 67 inches, 29 BMI, blood pressure 138/79, pulse 77, and temperature 96.4 degrees. HEAD, EARS, EYES, NOSE, AND THROAT: Unremarkable. LUNGS: Clear to auscultation. CARDIAC: Regular rate and rhythm without murmur or gallop. ABDOMEN: Soft, nontender. BREASTS: Unremarkable, without palpable abnormalities. EXTREMITIES: Unremarkable. ASSESSMENT AND PLAN: Right breast status post biopsy. Plan, we will need localized excisional biopsy to ensure benign . Explained risks and benefits and she consents. Job ID: [id number]
[2019-09-13 10:20] VITALS: BMI 28.1
[2019-09-14] MEDS ORDERED: Ketorolac Tromethamine 30 MG/ML VIAL ONE (08:09)
[2019-09-14] MEDS ORDERED: Acetaminophen 500 MG TAB ONE (08:10)
[2019-09-14] MEDS ORDERED: Bupivacaine PF 0.5% 30 ML VIAL ONE (08:12)
[2019-09-14] MEDS ORDERED: Lidocaine 1% w/Epinephrine 1:100K 20 ML VIAL ONE (08:12)
[2019-09-14] MEDS ORDERED: Fentanyl 100 MCG/2 ML VIAL ONE ×2 (09:05→10:25)
[2019-09-14] MEDS ORDERED: SUGAMMADEX SODIUM 200 MG/2 ML VIAL ONE (09:05)
[2019-09-14] MEDS ORDERED: PROPOFOL 200 MG/20 ML VIAL ONE (09:30)
[2019-09-14] MEDS ORDERED: EPHEDRINE 25 MG/5 ML SYRINGE ONE (09:30)
[2019-09-14] MEDS ORDERED: Dexamethasone 20 MG/5 ML VIAL ONE (09:30)
[2019-09-14] MEDS ORDERED: Lidocaine 1% PF 5 ML VIAL ONE (09:30)
[2019-09-14] MEDS ORDERED: Ondansetron PF 4 MG/2 ML Vial ONE (09:30)
--- NOTE | 2019-09-14 11:46 | OP ---
DATE OF PROCEDURE: 09/14/2019 PREOPERATIVE DIAGNOSES: Indeterminate lesion, left lateral mid slightly upper outer quadrant, left breast, status post biopsy, in need of excisional biopsies for further evaluation. POSTOPERATIVE DIAGNOSES: Indeterminate lesion, left lateral mid slightly upper outer quadrant, left breast, status post biopsy, in need of excisional biopsies for further evaluation. PROCEDURE PERFORMED: Mammographically needle-localized excisional biopsy, left breast lateral slightly upper outer mass with Radiology confirmation of localizing clip retrieval. ANESTHESIA: General, LMA, local of 0.5% Marcaine 30 mL mixed with 1% Xylocaine with epinephrine 20 mL total volume used. DESCRIPTION OF PROCEDURE: The patient was taken to the operating room, where after mammographically needle localization, left breast was prepared with ChloraPrep and draped in routine fashion. Incision was made in the upper outer quadrant of left breast just inferior to the localizing wire, and a core of breast tissue was dissected free from around the localizing wire to retrieve the entire wire and associated clip verified by Radiology. Hemostasis was gained with the cautery. Subcutaneous tissue was approximated with 3-0 Monocryl, skin with subdermal 4-0 Monocryl, and [place] glue applied. Total volume local anesthetic was infiltrated in the biopsy cavity for postoperative pain control and also in the skin and subcutaneous tissue with 21-gauge needle. The patient tolerated the procedure well. Job ID: [id number]
== END 2019-09-14 12:15 | disposition home or self-care (01) ==
LOC: SDC 06:57
PROVIDERS: ATTEND Specialist
PROC: 0HBU0ZZ Excision of Left Breast, Open Approach (ICD-10-PCS; principal; 2019-09-14)
DX: N60.32 Fibrosclerosis of left breast (principal); N60.42 Mammary duct ectasia of left breast; N60.82 Other benign mammary dysplasias of left breast; I10 Essential (primary) hypertension; K21.9 Gastro-esophageal reflux disease without esophagitis; F41.9 Anxiety disorder, unspecified; F32.9 Major depressive disorder, single episode, unspecified; G43.909 Migraine, unspecified, not intractable, without status migrainosus; Z79.899 Other long term (current) drug therapy; Z88.5 Allergy status to narcotic agent; Z91.040 Latex allergy status
CPT/HCPCS: 88307; J0690; J1100; J1885; J2001; J2405; J2704; J3010; S0020

== ENCOUNTER 2019-11-13 09:10 | Outpatient (CLI) | payer MEDICARE, MEDICAID ==
--- NOTE | 2019-11-13 11:09 | MMO ---
Left Breast MAMMO Unilat Diag DDI LT+MARTA. CLINICAL HISTORY: Patient is 59 years old and is seen for diagnostic exam,lump or thickening, bloody discharge and pain in the left breast. The patient has the following family history of breast cancer: maternal grandmother, malignant (generic). The patient has no personal history of cancer. The patient has a history of left Lumpectomy in August, - benign and left Ultrasound Guided Core Biopsy in July,. VIEWS: The views performed were: left craniocaudal with tomosynthesis; left mediolateral oblique with tomosynthesis; and left mediolateral with tomosynthesis. FILMS COMPARED: The present examination has been compared to prior imaging studies performed at [facility] on 07/16/2019, 08/06/2019, 08/24/2019 and 11/13/2019. This study has been interpreted with the assistance of computer-aided detection. MAMMOGRAM FINDINGS: The breast is heterogeneously dense, which could obscure a lesion on mammography. Finding 1: There is a focal asymmetry seen in the upper-outer region of the left breast. This assymetry is in the region of prior lumpectomy performed on 09/14/2019. 1.9 cm fluid collection seen in this area by ultrasound suspcious for a small abscess. Finding 2: There is no radiographic abnormality in the region of the nipple discharge in the left breast. Dialated ducts without intraluminal mass seen in the lower outer quadrant of the left breast by ultrasound. Suspicious hemorrhage filling a ductal segment of the lower outer quadrant of the left breast on breast MR dated 08/06/2019. IMPRESSION: FINDING 1: FOCAL ASYMMETRY IN THE LEFT BREAST IS BENIGN. SURGCIAL REFERRAL RECOMMENDED. FINDING 2: AREA IN THE LEFT BREAST IS SUSPICIOUS. PERSISTENT BLOODY DISCHARGE FROM THE LEFT BREAST. DUCTAL SEGMENT FILLED WITH HEMORRHAGE IN THE LOWER/OUTER LEFT BREAST ON BREAST MR 08/06/19. FINDINGS REMAIN SUSPICIOUS FOR MALIGNANT DUCTAL PATHOLOGY. RECOMMEND SURGICAL REFERRAL FOR CONSIDERATION FOR DUCTOGRAM OR DUCTAL EXCISION. THE FINDINGS AND RECOMMENDATIONS WERE DISCUSSED WITH THE PATIENT PRIOR TO HER LEAVING THE CENTER. OJSUE WEBB AT THE OFFICE OF THE PATIENT'S REFERRING PHYSICIAN, JOSUE WEBB, WAS NOTIFIED OF THE EXAM RESULTS BY TELEPHONE ON 10:30 AM ON 11/13/2019.. THE RESULTS OF THIS EXAM WERE SENT TO THE PATIENT. ACR BI-RADS Category 4 - Suspicious abnormality - biopsy should be considered MAMMOGRAPHY NOTE: 1. A negative mammogram report should not delay a biopsy if a dominant of clinically suspicious mass is present. 2. Approximately 10% to 15% of breast cancers are not detected by mammography. 3. Adenosis and dense breasts may obscure an underlying neoplasm. Reported by: BRYAN PERES MD Electonically Signed: [id number]
--- NOTE | 2019-11-13 12:03 | ULT ---
LEFT BREAST DIAGNOSTIC ULTRASOUND: INDICATION: Status post left breast surgical excision on 09/14/2019 with concern for left breast infection. Persi stent bloody discharge from the left breast. COMPARISON: MRI of the breast dated 08/06/2019 and diagnostic evaluation dated 08/24/2019 and 07/16/2019. FINDINGS: Within the operative bed in the upper outer quadrant of the left breast, there is a 1.9 x 1.6 cm hypo echoic fluid collection. There is mild surrounding edema near this region. Within the left breast r etroareolar region there are numerous dilated ducts. No definite intraluminal mass is seen within th e ducts. IMPRESSION: 1. A 1.9 cm focal fluid collection within the left breast operative bed may reflect a residual posto perative fluid collection; however, in light of the patient's history of concern for left breast infe ction. A small abscess is suspected. Surgical referral is recommended. 2. Persistent dilated ducts in the left breast retroareolar region. The patient is having persisten t bloody discharge. On an MRI of the breast dated 08/06/2019, there was a duct in the lower outer krystal drant of the left breast that demonstrated precontrast and postcontrast T1 hyperintensity suspicious for hemorrhage filling a ductal segment in the lower outer quadrant of the left breast between 4 and 6 o'clock position that remains suspicious. This would remain as a BIRADS category 4 finding. Would recommend referral back to Dr. Garsia for consideration for a ductal excision or ductography. Findings were called to Dr. José Miguel Pena at 10:30 a.m. 11/13/2019. Findings were also discussed with Dr. Garsia at 10:58 on 11/13/2019. CODE CR
== END 2019-11-13 09:11 | disposition home or self-care (01) ==
LOC: BICMAMMO 09:10
PROVIDERS: ATTEND Specialist
DX: N63.20 Unspecified lump in the left breast, unspecified quadrant (principal); N64.89 Other specified disorders of breast; N64.52 Nipple discharge
CPT/HCPCS: 76642; 77065; G0279

== ENCOUNTER 2019-11-30 06:57 | Outpatient (CLI) | payer MEDICARE, MEDICAID, OTHER ==
[2019-11-30 15:23] LABS: #Basophils 0.1 thou/uL (0.0-0.2); #Eosinphils 0.2 thou/uL (0.0-0.7); #Lymphocytes 3.6 thou/uL (1.20-3.40); #Monocytes 1.2 thou/uL (0.11-0.59); #Neutrophils 10.5 thou/uL (1.40-6.50); %Basophils 0.5 % (0.0-1.0); %Eosinophils 1.6 % (0.0-10.0); %Lymphocytes 23.2 % (21.0-51.0); %Monocytes 7.4 % (0.0-10.0); %Neutrophils 67.4 % (42.0-75.0); Hemoglobin 14.4 g/dL (12.0-16.0); Mean Corpuscular HGB CONC 33.2 g/dL (32.0-36.0); Mean Corpuscular Hemoglobin 30.7 pg (27.0-31.0); Mean Corpuscular Volume 92.3 fL (78.0-98.0); Mean Platelet Volume 8.6 fL (7.4-10.4); Platelet Count 225 thou/uL (130-400); RBC Distribution Width 13.3 % (11.5-14.5); White Blood Cell (WBC) Count 15.6 thou/uL (4.8-10.8)
[2019-11-30 15:43] LABS: Anion Gap 13 mmol/L (10-20); BUN (Urea Nitrogen) 17 mg/dL (9.8-20.1); Calc. Creatinine Clearance 0 mL/min (70-130); Calcium 9.8 mg/dL (7.8-10.44); Carbon Dioxide 26 mmol/L (23-31); Chloride 105 mmol/L (98-107); Estimated GFR-MDRD 57; Glucose 88 mg/dL (80-115); Potassium 4.7 mmol/L (3.5-5.1); Sodium 139 mmol/L (136-145)
[2019-12-01 17:09] LABS: SARS-CoV-2 MS2 Positive; SARS-CoV-2 N Gene Negative; SARS-CoV-2 S Gene Negative; SARS-CoV-2 orf1ab Negative
== END 2019-11-30 06:58 | disposition home or self-care (01) ==
LOC: LABBT 06:57
PROVIDERS: ATTEND Specialist
DX: Z01.812 Encounter for preprocedural laboratory examination (principal); Z11.59 Encounter for screening for other viral diseases; N63.20 Unspecified lump in the left breast, unspecified quadrant
CPT/HCPCS: 80048; 85025; U0003; 87635

== ENCOUNTER 2019-12-25 12:32 | Outpatient (CLI) | payer MEDICARE, MEDICAID, OTHER ==
--- NOTE | 2019-12-26 06:19 | HP ---
HISTORY OF PRESENT ILLNESS: Lizet Napier is a 59-year-old female, status post excision of left retroareolar mass 12/05/2019 after followup mammo needle localization on 09/14/2019, pathology revealing fibrocystic disease, apocrine metaplasia, and duct ectasia and stromal fibrosis. She states that since the surgery, she has had a great deal of pain in her left breast. She has had swelling. She recently had drainage from around the periareolar incision laterally. Examination today reveals a large hematoma in the left breast. There is no evidence of infection. Her breast is very tender and swollen. We have discussed options for continued nonsurgical intervention, but it is hurting her so much, she desires intervention as soon as possible. Plan at this time is under general anesthesia to wash the hematoma, perhaps place a small [place] drain. As an outpatient, we will plan this tomorrow. She understands risks and benefits, consents. PAST MEDICAL HISTORY: Hypertension, GERD, osteoporosis, migraines, and depression. PAST SURGICAL HISTORY: Hysterectomy, cervical spine surgery, appendectomy, cholecystectomy, and breast biopsies as described. FAMILY HISTORY: Diabetes, hypertension, back problems, otherwise noncontributory. SOCIAL HISTORY: Tobacco abuse in the past, currently none. Alcohol, none. ALLERGIES: LATEX AND TRAMADOL. REVIEW OF SYSTEMS: Ten-point noncontributory. PHYSICAL EXAMINATION: VITAL SIGNS: 183 pounds and 5 feet 7 inches. 112/48, 60, and 98.1 degrees. LUNGS: Clear to auscultation. CARDIAC: Regular rate and rhythm without murmur or gallop. ABDOMEN: Soft and nontender. EXTREMITIES: Unremarkable. BREASTS: Right breast without mass. Left breast, large hematoma without evidence of infection. Periareolar incision intact. I cannot express any hematoma out currently, even though she had recent drainage, although this is hindered by her tenderness. ASSESSMENT: Left breast hematoma. PLAN: Surgical evacuation and possible passive drainage. She understands risks and benefits, consent. Job ID: [id number]
[2019-12-26 10:56] LABS: SARS-CoV-2 MS2 Positive; SARS-CoV-2 N Gene Negative; SARS-CoV-2 S Gene Negative; SARS-CoV-2 orf1ab Negative
== END 2019-12-25 12:33 | disposition home or self-care (01) ==
LOC: LABBT 12:32
PROVIDERS: ATTEND Specialist
DX: Z01.812 Encounter for preprocedural laboratory examination (principal); Z11.59 Encounter for screening for other viral diseases; N64.89 Other specified disorders of breast
CPT/HCPCS: 87635; U0003

== ENCOUNTER 2019-12-26 11:52 | Day surgery (SDC) | payer MEDICARE, MEDICAID ==
[~2019-12-26 11:52] MED LIST changes: +Dexamethasone 20 MG/5 ML VIAL ONE; +EPHEDRINE 25 MG/5 ML SYRINGE ONE; +Glycopyrrolate 0.2 MG/ML 5 ML SYRINGE ONE; -Iopamidol 370 76% 100 ML VIAL ONE; +Lidocaine 1% PF 5 ML VIAL ONE; +Ondansetron PF 4 MG/2 ML Vial ONE; +PROPOFOL 200 MG/20 ML VIAL ONE
[2019-12-26] MEDS ORDERED: Acetaminophen 500 MG TAB ONE (12:22)
[2019-12-26] MEDS ORDERED: Ketorolac Tromethamine 30 MG/ML VIAL ONE (12:22)
[2019-12-26] MEDS ORDERED: Fentanyl 100 MCG/2 ML VIAL ONE ×2 (13:04→14:13)
[2019-12-26] MEDS ORDERED: HYDROmorphone 0.5 MG/0.5 ML SYRINGE ONE (13:04)
[2019-12-26] MEDS ORDERED: Bupivacaine 0.25% HCL 30 ML VIAL ONE (13:24)
[2019-12-26] MEDS ORDERED: Lidocaine 1% w/Epinephrine 1:100K 20 ML VIAL ONE (13:24)
--- NOTE | 2019-12-27 07:54 | OP ---
DATE OF PROCEDURE: 12/26/2019 PREOPERATIVE DIAGNOSIS: Postoperative left breast hematoma, painful, large. POSTOPERATIVE DIAGNOSIS: Postoperative left breast hematoma, painful, large. PROCEDURE PERFORMED: Evacuation of left breast hematoma, hemostasis, closure. No drains. No evidence of infection. ANESTHESIA: General, local of 0.25% Marcaine 60 mL mixed with 2% xylocaine with epinephrine 20 mL, total volume used. DESCRIPTION OF PROCEDURE: The patient was taken to the operating room, where under general anesthesia, left breast was prepared with ChloraPrep and draped in routine fashion. Local anesthetic was infiltrated in the skin and subcutaneous tissue about the operative site. The old periareolar incision was opened. A large amount of hematoma and old hematoma fluid evacuated. Wound irrigated with saline solution. Good hemostasis assured with cautery. Subcutaneous tissue was approximated with 3-0 Monocryl, skin was subdermal 4-0 Monocryl and [place] glue applied after local anesthetic was infiltrated in the biopsy cavity. Postop pain control. Hector wrap applied. Job ID: [id number]
== END 2019-12-26 15:30 | disposition home or self-care (01) ==
LOC: SDC 11:52
PROVIDERS: ATTEND Specialist
PROC: 0J960ZZ Drainage of Chest Subcutaneous Tissue and Fascia, Open Approach (ICD-10-PCS; principal; 2019-12-26)
DX: L76.32 Postprocedural hematoma of skin and subcutaneous tissue following other procedure (principal); I10 Essential (primary) hypertension; K21.9 Gastro-esophageal reflux disease without esophagitis; F32.9 Major depressive disorder, single episode, unspecified; Z79.899 Other long term (current) drug therapy; Z87.891 Personal history of nicotine dependence; Z88.5 Allergy status to narcotic agent; Z91.040 Latex allergy status
CPT/HCPCS: 93005; 93010; J0690; J1100; J1170; J1885; J2001; J2405; J2704; J3010; S0020

== ENCOUNTER 2020-03-14 09:00 | Outpatient (CLI) | payer MEDICARE, OTHER ==
--- NOTE | 2020-03-14 09:33 | RAD ---
3 VIEWS THORACIC SPINE: Date: 03/14/2020 COMPARISON: None. HISTORY: Back pain. FINDINGS: Three views of the thoracic spine show normal height and alignment of the vertebral bodies and interv ertebral discs without fracture or subluxation. Minimal osteophyte formation s seen in the lower thor acic spine. Hardware is seen in the cervical spine. IMPRESSION: Mild degenerative changes of the thoracic spine without acute osseous abnormality. POS: EAA
--- NOTE | 2020-03-14 09:41 | RAD ---
THREE VIEWS OF THE LUMBOSACRAL SPINE: COMPARISON: 03/21/2008. HISTORY: Low back pain. FINDINGS: Three views of the lumbosacral spine show normal height and alignment of the vertebral bodies without fracture or subluxation. There is mild narrowing of the L5-S1 intervertebral disks. Posterior face t arthrosis is seen in the lower lumbosacral spine. Cholecystectomy clips are seen. IMPRESSION: Mild degenerative changes of the lower lumbosacral spine without acute osseous abnormality. POS: MARYAMA
== END 2020-03-14 09:01 | disposition home or self-care (01) ==
LOC: BICRAD 09:00
PROVIDERS: ATTEND Specialist
DX: M54.5 Low back pain (principal); M54.9 Dorsalgia, unspecified; M47.814 Spondylosis without myelopathy or radiculopathy, thoracic region; M47.817 Spondylosis without myelopathy or radiculopathy, lumbosacral region
CPT/HCPCS: 72072; 72100

== ENCOUNTER 2020-04-11 09:24 | Outpatient (CLI) | payer MEDICARE, MEDICAID ==
--- NOTE | 2020-04-11 11:58 | MRI ---
LUMBAR SPINE MRI WITHOUT IV CONTRAST: HISTORY: Lumbosacral radiculopathy, low back pain, left leg pain. FINDINGS: There are multilevel type I end plate changes including T12-L1, L1-L2, L3-L4, and L4-L5 levels. No e vidence for significant acute abnormal marrow edema. Generalized disk desiccation changes with ligam ent and facet hypertrophic changes. Conus medullaris region appears unremarkable. Bilateral T1 hypo intense, T2 hyperintense renal foci, evidence for renal cyst with minimal dilatation of the renal pel vises bilaterally, somewhat worse on the right side. T12-L1 disk: Very small right paracentral protrusion with mild indention of the ventral thecal sac. L1-L2 disk: Small right posterolateral protrusion with minimal left foraminal stenosis. L2-L3 disk: Diffuse disk-osteophyte with associated annular fissure and mild bilateral recess stenos is and foraminal stenosis. L3-L4 disk: Diffuse disk bulging with mild to moderate bilateral recess stenosis with a right-sided small annular fissure and some mild foraminal stenosis. L4-L5 disk: Prominent focal left paracentral area of disk extrusion with caudal migration down to th e mid L5 vertebral body level with depression of the left L5 nerve root, generalized bilateral recess stenosis, and foraminal stenosis. L5-S1 disk: Diffuse disk-osteophyte with moderate to severe bilateral foraminal stenosis. IMPRESSION: Multilevel variable severity canal, lateral recess, and foraminal stenosis as above, including exclud ed caudally migrating disk herniation at L4-L5. Multilevel type I end plate changes. Other findings as above. POS: RRE
== END 2020-04-11 09:25 | disposition home or self-care (01) ==
LOC: BICMRI 09:24
PROVIDERS: ATTEND Nurse Practitioner Family
DX: M54.17 Radiculopathy, lumbosacral region (principal); M48.07 Spinal stenosis, lumbosacral region; M48.061 Spinal stenosis, lumbar region without neurogenic claudication; M51.26 Other intervertebral disc displacement, lumbar region; M51.24 Other intervertebral disc displacement, thoracic region; Q05.9 Spina bifida, unspecified
CPT/HCPCS: 72148

== ENCOUNTER 2020-07-23 06:31 | Outpatient (CLI) | payer MEDICARE, MEDICAID ==
[2020-07-23 17:43] LABS: SARS-CoV-2 MS2 Positive; SARS-CoV-2 N Gene Negative; SARS-CoV-2 S Gene Negative; SARS-CoV-2 by NAA Not Detected (NotDetected); SARS-CoV-2 orf1ab Negative
--- NOTE | 2020-07-23 21:31 | EKG ---
Test Reason : Blood Pressure : / mmHG Vent. Rate : 060 BPM Atrial Rate : 060 BPM P-R Int : 134 ms QRS Dur : 092 ms QT Int : 434 ms P-R-T Axes : 066 -07 049 degrees QTc Int : 434 ms Normal sinus rhythm Incomplete right bundle branch block Borderline ECG No previous ECGs available Confirmed by Tamara LOGAN ([id number]) on 07/23/2020 9:31:20 PM Referred By: ABHINAV Confirmed By:Tamara LOGAN
== END 2020-07-23 06:32 | disposition home or self-care (01) ==
LOC: LABBT 06:31
PROVIDERS: ATTEND Neurological Surgery
DX: Z01.818 Encounter for other preprocedural examination (principal); M51.16 Intervertebral disc disorders with radiculopathy, lumbar region; Z20.828 Contact with and (suspected) exposure to other viral communicable diseases
CPT/HCPCS: 93005; U0003; 87635; 93010

== ENCOUNTER 2020-07-28 05:50 | Day surgery (SDC) | payer MEDICARE, MEDICAID ==
[2020-07-22 13:33] VITALS: BMI 29.7
--- NOTE | 2020-07-27 22:47 | HP ---
HISTORY OF PRESENT ILLNESS: Ms. Napier is a 60-year-old woman, referred to us by for left-sided L5 radiculopathy with an MRI scan from [facility] revealing a disk fragment from inferiorly migrated L4 disk herniation on the left. This could certainly account for her pain. She has attempted to treat this over the past year with Pain Management, specifically in the way of injections and medications, but continues to struggle. She hopes to discuss possible surgical interventions. PAST MEDICAL HISTORY: Significant for hypercholesterolemia, chronic pain syndrome, depression, anxiety, seasonal allergies, headaches, and osteoporosis. PAST SURGICAL HISTORY: Appendectomy, hysterectomy, depressed skull fracture and craniotomy, corneal transplant, cholecystectomy, and cervical spinal fusion. CURRENT MEDICATIONS: 1. Butalbital/acetaminophen. 2. Doxepin. 3. Tizanidine. 4. Sertraline. 5. Pantoprazole. 6. Gabapentin. ALLERGIES: NO KNOWN DRUG ALLERGIES. PHYSICAL EXAMINATION: Deferred for telehealth visit. ASSESSMENT: Lumbar radiculopathy. PLAN: Dr. Laughlin met with the patient, reviewed imaging, and advocated for a left L4-5 diskectomy. He explained to the patient risks, benefits, and alternatives to the procedure. The patient expressed understanding and elected to move forward with surgery as discussed. I do believe that the patient is mentally competent and capable of making medical decisions for herself. We will move forward with surgery as planned. Job ID: [id number]
[2020-07-28] MEDS ORDERED: Bupivacaine PF 0.5% 30 ML VIAL ONE (06:34)
[2020-07-28] MEDS ORDERED: Thrombin 5000 UNITS/5 ML VIAL ONE (06:34)
[2020-07-28] MEDS ORDERED: EPINEPHrine 1 MG/ML AMP ONE (06:35)
[2020-07-28] MEDS ORDERED: Fentanyl 250 MCG/5 ML VIAL ONE (06:40)
[2020-07-28] MEDS ORDERED: Midazolam HCl 2 mg/2 ml Vial ONE (06:56)
[2020-07-28] MEDS ORDERED: SUGAMMADEX SODIUM 200 MG/2 ML VIAL ONE (07:54)
--- NOTE | 2020-07-28 08:05 | OP ---
DATE OF PROCEDURE: 07/28/2020 DIAMOND PICKER: Amari Steele PA-C INDICATION: Pain. DIAGNOSIS: Lumbar radiculopathy. PROCEDURE PERFORMED: Left L4-L5 diskectomy. ANESTHESIA: General. DESCRIPTION OF PROCEDURE: The patient was brought into the operating room and placed under general anesthesia. She was flipped from the supine to prone position on the operating room table. A linear incision was planned at the L4-L5 segment. After prepping and draping and after an appropriate preoperative pause, the incision was created. The soft tissues were swept left of midline and a self-retaining retractor was placed. The C-arm images were obtained to confirm the appropriate level. After confirming the appropriate level, a high-speed cutting drill bit as well as 2, 3, and 4 mm Kerrisons were then used to complete a laminectomy along the inferior aspect of L2, L4, and then superior aspect of L5. The laminectomy was extended laterally to encompass the medial aspect of the facet joint. The descending L5 nerve root was identified and mobilized medially with a nerve root retractor. A small amount of disk material was found inferiorly migrated from the disk space just medial to the pedicle wall as indicated on the patient's MRI scan. This was carefully removed until the lateral recesses were well decompressed. After completing the decompression, the wound was irrigated. Hemostasis was maintained throughout. The wound was then closed in anatomic layers, and a pressure dressing was applied. There were no known procedural complications. Job ID: [id number]
[2020-07-28] MEDS ORDERED: Fentanyl 100 MCG/2 ML VIAL ONE (08:21)
[2020-07-28] MEDS ORDERED: Dexamethasone 20 MG/5 ML VIAL ONE (09:55)
[2020-07-28] MEDS ORDERED: Rocuronium Bromide 10 MG/ML (10ML VIAL) ONE (09:55)
[2020-07-28] MEDS ORDERED: HYDROcodone/Acetaminophen 5/325 mg Tablet ONE (09:55)
[2020-07-28] MEDS ORDERED: PHENYLEPHRINE-NS 100 MCG/ML 10 ML SYRINGE ONE (09:55)
[2020-07-28] MEDS ORDERED: Lidocaine 1% PF 5 ML VIAL ONE (09:55)
[2020-07-28] MEDS ORDERED: Ondansetron PF 4 MG/2 ML Vial ONE (09:55)
[2020-07-28] MEDS ORDERED: PROPOFOL 200 MG/20 ML VIAL ONE (09:55)
[2020-07-28] MEDS ORDERED: Ketorolac Tromethamine 30 MG/ML VIAL ONE (09:55)
[2020-07-28] MEDS ORDERED: Glycopyrrolate 0.2 MG/ML 5 ML SYRINGE ONE (09:55)
== END 2020-07-28 10:43 | disposition home or self-care (01) ==
LOC: SDC 05:50
PROVIDERS: ATTEND Neurological Surgery
PROC: 0ST20ZZ Resection of Lumbar Vertebral Disc, Open Approach (ICD-10-PCS; principal; 2020-07-28)
DX: M51.16 Intervertebral disc disorders with radiculopathy, lumbar region (principal); E78.00 Pure hypercholesterolemia, unspecified; G89.4 Chronic pain syndrome; F32.9 Major depressive disorder, single episode, unspecified; F41.9 Anxiety disorder, unspecified; J30.2 Other seasonal allergic rhinitis; I10 Essential (primary) hypertension; K21.9 Gastro-esophageal reflux disease without esophagitis; M81.0 Age-related osteoporosis without current pathological fracture; H54.8 Legal blindness, as defined in USA; Z79.899 Other long term (current) drug therapy; Z88.5 Allergy status to narcotic agent; Z91.040 Latex allergy status
CPT/HCPCS: 76000; J0171; J0690; J2250; J3010; S0020

== ENCOUNTER 2020-08-29 09:13 | Outpatient (CLI) | payer MEDICARE, MEDICAID ==
--- NOTE | 2020-08-29 09:50 | MMO ---
Bilateral MAMMO Bilat Diag [facility]. CLINICAL HISTORY: Patient is 60 years old and is seen for diagnostic exam. The patient has the following family history of breast cancer: maternal grandmother, malignant (generic). The patient has no personal history of cancer. The patient has a history of left Lumpectomy in August, - benign and left Ultrasound Guided Core Biopsy in July,. VIEWS: The views performed were: bilateral craniocaudal with tomosynthesis; bilateral mediolateral oblique with tomosynthesis; and bilateral mediolateral with tomosynthesis. FILMS COMPARED: The present examination has been compared to prior imaging studies performed at [facility] on 08/06/2019, 08/24/2019 and 11/13/2019. This study has been interpreted with the assistance of computer-aided detection. MAMMOGRAM FINDINGS: There are scattered fibroglandular densities. Finding 1: There are stable post operative changes seen in the upper-outer region of the left breast. Finding 2: There are new post operative changes seen in the sub-areolar region of the left breast. Finding 3: There are stable calcifications seen in both breasts. Finding 4: There are no mammographic abnormalities to explain the patient's breast pain. The patient is referred back to her clinician. Negative imaging findings should not preclude biopsy if clinical findings are suspicious. IMPRESSION: THERE ARE NO MAMMOGRAPHIC ABNORMALITIES TO EXPLAIN THE PATIENT'S BREAST PAIN. THE PATIENT IS REFERRED BACK TO HER CLINICIAN. NEGATIVE IMAGING FINDINGS SHOULD NOT PRECLUDE BIOPSY IF CLINICAL FINDINGS ARE SUSPICIOUS. THE RESULTS OF THIS EXAM WERE SENT TO THE PATIENT. ACR BI-RADS Category 2 - Benign finding MAMMOGRAPHY NOTE: 1. A negative mammogram report should not delay a biopsy if a dominant of clinically suspicious mass is present. 2. Approximately 10% to 15% of breast cancers are not detected by mammography. 3. Adenosis and dense breasts may obscure an underlying neoplasm. Reported by: CIERRA LAUREANO MD Electonically Signed: [id number]
== END 2020-08-29 09:14 | disposition home or self-care (01) ==
LOC: BICMAMMO 09:13
PROVIDERS: ATTEND Specialist
DX: N64.4 Mastodynia (principal); N61.0 Mastitis without abscess; Z91.89 Other specified personal risk factors, not elsewhere classified; Z80.3 Family history of malignant neoplasm of breast
CPT/HCPCS: 77066; G0279

== ENCOUNTER 2021-04-06 07:00 | Outpatient (CLI) | payer MEDICARE, MEDICAID | END 2021-04-06 07:01 | disposition home or self-care (01) | LOC: BICMRI 07:00 | PROVIDERS: ATTEND Specialist | DX: N63.21 Unspecified lump in the left breast, upper outer quadrant (principal) | CPT/HCPCS: 82565; C8908; A9577 ==

== ENCOUNTER 2021-12-09 15:53 | Outpatient (CLI) | payer MEDICARE, OTHER | END 2021-12-09 15:54 | disposition home or self-care (01) | LOC: BICRAD 15:53 | PROVIDERS: ATTEND Specialist | DX: M25.561 Pain in right knee (principal) ==

== ENCOUNTER 2021-12-14 09:58 | Outpatient (CLI) | payer MEDICARE, OTHER | END 2021-12-14 09:59 | disposition home or self-care (01) | LOC: BICMRI 09:58 | PROVIDERS: ATTEND Specialist | DX: M23.91 Unspecified internal derangement of right knee (principal); M25.561 Pain in right knee ==

== ENCOUNTER 2024-02-09 07:51 | Day surgery (SDC) | payer MEDICARE, MEDICAID ==
[2024-02-09] MEDS: Cosyntropin 250 MCG VIAL SLOW IVP SCH (08:23)
[2024-02-09] MEDS: Sodium Chloride 0.9% (PF) 10 ML VIAL FS SCH (08:24)
[2024-02-09 08:48] VITALS: BP 140/70; TEMP 98.2
== END 2024-02-09 10:42 | disposition home or self-care (01) ==
LOC: ONC/OP 07:51
PROVIDERS: ATTEND Specialist
DX: E27.40 Unspecified adrenocortical insufficiency (principal); Z91.040 Latex allergy status; Z88.5 Allergy status to narcotic agent
CPT/HCPCS: 80400; 82024; 82533; 96374; J0834

== ENCOUNTER 2024-03-23 06:25 | Day surgery (SDC) | payer MEDICARE, MEDICAID ==
[2024-03-20 11:14] VITALS: BMI 25.0
[2024-03-23] MEDS ORDERED: Bupivacaine PF 0.5% 30 ML VIAL ONE (06:46)
[2024-03-23] MEDS ORDERED: Bacitracin Zinc Ointment 30 gm TUBE ONE (06:46)
[2024-03-23] MEDS ORDERED: PROPOFOL 20 ML ONE (08:25)
[2024-03-23] MEDS ORDERED: Lidocaine 2% PF 5 ML VIAL ONE (08:25)
[2024-03-23] MEDS ORDERED: CEFAZOLIN 2 GM VIAL ONE (08:35)
[2024-03-23] MEDS ORDERED: Sodium Chloride 0.9% 100 ML ONE (08:35)
[2024-03-23] MEDS ORDERED: Dexamethasone 20 MG/5 ML VIAL ONE (08:59)
[2024-03-23] MEDS ORDERED: Ketorolac Tromethamine 30 MG (1 mL) VIAL ONE (08:59)
[2024-03-23] MEDS ORDERED: Ondansetron PF 4 MG/2 ML Vial ONE (08:59)
[2024-03-23] MEDS ORDERED: fentaNYL PF 100 MCG/2 ML SYRINGE ONE (09:04)
== END 2024-03-23 11:36 | disposition home or self-care (01) ==
LOC: SDC 06:25
PROVIDERS: ATTEND Orthopaedic Surgery Hand Surgery
PROC: 01N50ZZ Release Median Nerve, Open Approach (ICD-10-PCS; principal; 2024-03-23)
DX: G56.02 Carpal tunnel syndrome, left upper limb (principal); I10 Essential (primary) hypertension
CPT/HCPCS: 64721; A6223; J0665; J1100; J1885; J2001; J2405; J2704